=== PATIENT | female | born 1985 | race Caucasian/White ===

== ENCOUNTER 2020-04-12 17:16 | Emergency (ER) | payer OTHER ==
[~2020-04-12] VITALS: Ht 162.6 cm; Wt 61.9 kg
[2020-04-12] MEDS ORDERED: IV NORMAL SALINE 1000ML BAG 1,000 ML IV SCH (17:46)
[2020-04-12 17:54] LABS: BASO # 0.1 x10^3/uL (0.0-0.2); BASO % 1 % (0-3); EOS # 0.3 x10^3/uL (0.0-0.7); EOS % 2 % (0-3); HEMOGLOBIN 13.2 g/dL (12.0-15.5); LYMPH # 3.2 x10^3/uL (1.0-4.8); LYMPH % 22 % (24-48); MEAN CORPUSCULAR HEMOGLOBIN 32 pg (25-35); MEAN CORPUSCULAR HGB CONC 33 g/dL (31-37); MEAN CORPUSCULAR VOLUME 96 fL (79-100); MONO # 0.9 x10^3/uL (0.0-1.1); MONO % 6 % (0-9); NEUT % 69 % (31-73); PLATELET COUNT 286 x10^3/uL (140-400); RED BLOOD COUNT 4.18 x10^6/uL (3.50-5.40); RED CELL DISTRIBUTION WIDTH 13.1 % (11.5-14.5); WHITE BLOOD COUNT 14.6 x10^3/uL (4.0-11.0)
[2020-04-12 17:56] LABS: BILIRUBIN,URINE NEGATIVE (NEG); COLOR,URINE YELLOW; NITRITE,URINE NEGATIVE (NEG); PH,URINE 7.5 (<5.0-8.0); PROTEIN,URINE NEGATIVE (NEG-TRACE); UROBILINOGEN,URINE 0.2 mg/dL (0.2 mg/dL)
[2020-04-12 18:03] LABS: BARBITURATES NEG (NEG); BENZODIAZEPINES NEG (NEG); CANNABINOIDS NEG (NEG); CLARITY,URINE CLEAR; COCAINE NEG (NEG); METHADONE NEG (NEG); OPIATES NEG (NEG); PHENCYCLIDINE NEG (NEG)
[2020-04-12 18:03] LABS: CALCIUM 8.5 mg/dL (8.5-10.1); CREATININE 0.7 mg/dL (0.6-1.0); POTASSIUM 4.2 mmol/L (3.5-5.1); PROTHROMBIN TIME PATIENT 12.5 SEC (11.7-14.0)
[2020-04-12 18:04] LABS: AMPHETAMINE/METHAMPHETAMINE NEG (NEG); BACTERIA,URINE FEW /HPF (0-FEW); RBC,URINE 0 /HPF (0-2); WBC,URINE 0 /HPF (0-4)
[2020-04-12 18:09] LABS: ALBUMIN 3.5 g/dL (3.4-5.0); ALBUMIN/GLOBULIN RATIO 1.1 (1.0-1.7); TOTAL BILIRUBIN 0.1 mg/dL (0.2-1.0); TOTAL PROTEIN 6.7 g/dL (6.4-8.2)
--- NOTE | 2020-04-12 18:11 | PHYS DOC ---
General Adult EDM: Chief Complaint: ABDOMINAL PAIN HPI: HPI: Patient is a 34 year old female who presents with here from [facility] drug rehab facility with 1 day of lower mid abdominal cramping. She states she also had 8 p eriod in December. She states she just recently had a period April 03. She states she has not taken any medications for her pain. Patient has a history of miscarriage, ovarian cyst, drug abuse. Rates her pain a 7 out of 10. She states she did have some constipation but had a large bowel movement today that she is feeling better. States she does have some nausea but has not been vomiting. She denies fever, dysuria symptoms, abnormal vaginal discharge, chest pain, shortness of breath, headache, dizziness, syncope, back pain, numbness or tingling. Review of Systems: Review of Systems: Constitutional: Denies fever or chills. [] Eyes: Denies change in visual acuity. [] HENT: Denies nasal congestion or sore throat. [] Respiratory: Denies cough or shortness of breath. [] Cardiovascular: Denies chest pain or edema. [] GI: + abdominal pain, +nausea, denies vomiting, bloody stools or diarrhea. [] : Denies dysuria. + Abnormal periods. +Concern for STD. [] Musculoskeletal: Denies back pain or joint pain. [] Integument: Denies rash. [] Neurologic: Denies headache, focal weakness or sensory changes. [] Endocrine: Denies polyuria or polydipsia. [] Lymphatic: Denies swollen glands. [] Psychiatric: Denies depression or anxiety. [] Heart Score: Risk Factors: Risk Factors: DM, Current or recent (<one month) smoker, HTN, HLP, family history of CAD, obesity. Risk Scores: Score 0 - 3: 2.5% MACE over next 6 weeks - Discharge Home Score 4 - 6: 20.3% MACE over next 6 weeks - Admit for Clinical Observation Score 7 - 10: 72.7% MACE over next 6 weeks - Early Invasive Strategies Current Medications: Current Medications Medications (Trade) Dose Ordered Sig/Marisol Start Time Stop Time Status Last Admin Dose Admin Sodium Chloride 1,000 ml @ 1,000 mls/hr Q1H 04/12/20 17:46 04/12/20 18:45 UNV Physical Exam: PE: Constitutional: Well developed, well nourished, no acute distress, non-toxic appearance. [] HENT: Normocephalic, atraumatic, bilateral external ears normal, oropharynx moist, no oral exudates, nose normal. [] Eyes: PERRLA, EOMI, conjunctiva normal, no discharge. [] Neck: Normal range of motion, no tenderness, supple, no stridor. [] Cardiovascular:Heart rate regular rhythm, no murmur [] Lungs & Thorax: Bilateral breath sounds clear to auscultation [] Abdomen: Bowel sounds normal, soft, Low mid abdominal tenderness, no masses, no pulsatile masses. [] Skin: Warm, dry, no erythema, no rash. [] Back: No tenderness, no CVA tenderness. [] Extremities: No tenderness, no cyanosis, no clubbing, ROM intact, no edema. [] Neurologic: Alert and oriented X 3, normal motor function, normal sensory function, no focal deficits noted. [] Psychologic: Affect normal, judgement normal, mood normal. [] Current Patient Data: Labs: Laboratory Tests Test 04/12/20 17:35 04/12/20 17:44 04/12/20 17:53 Urine Opiates Screen Neg (NEG) Urine Methadone Screen Neg (NEG) Urine Barbiturates Neg (NEG) Urine Phencyclidine Screen Neg (NEG) Urine Amphetamine/Methamphetamine Neg (NEG) Urine Benzodiazepines Screen Neg (NEG) Urine Cocaine Screen Neg (NEG) Urine Cannabinoids Screen Neg (NEG) Urine Ethyl Alcohol Neg (NEG) White Blood Count 14.6 x10^3/uL (4.0-11.0) H Red Blood Count 4.18 x10^6/uL (3.50-5.40) Hemoglobin 13.2 g/dL (12.0-15.5) Hematocrit 40.0 % (36.0-47.0) Mean Corpuscular Volume 96 fL (79-100) Mean Corpuscular Hemoglobin 32 pg (25-35) Mean Corpuscular Hemoglobin Concent 33 g/dL (31-37) Red Cell Distribution Width 13.1 % (11.5-14.5) Platelet Count 286 x10^3/uL (140-400) Neutrophils (%) (Auto) 69 % (31-73) Lymphocytes (%) (Auto) 22 % (24-48) L Monocytes (%) (Auto) 6 % (0-9) Eosinophils (%) (Auto) 2 % (0-3) Basophils (%) (Auto) 1 % (0-3) Neutrophils # (Auto) 10.0 x10^3/uL (1.8-7.7) H Lymphocytes # (Auto) 3.2 x10^3/uL (1.0-4.8) Monocytes # (Auto) 0.9 x10^3/uL (0.0-1.1) Eosinophils # (Auto) 0.3 x10^3/uL (0.0-0.7) Basophils # (Auto) 0.1 x10^3/uL (0.0-0.2) Sodium Level 138 mmol/L (136-145) Potassium Level 4.2 mmol/L (3.5-5.1) Chloride Level 103 mmol/L (98-107) Carbon Dioxide Level 25 mmol/L (21-32) Anion Gap 10 (6-14) Blood Urea Nitrogen 13 mg/dL (7-20) Creatinine 0.7 mg/dL (0.6-1.0) Estimated GFR (Cockcroft-Gault) 97.0 BUN/Creatinine Ratio 19 (6-20) Glucose Level 97 mg/dL (70-99) Calcium Level 8.5 mg/dL (8.5-10.1) Total Bilirubin Pending Aspartate Amino Transferase (AST) Pending Alanine Aminotransferase (ALT) Pending Alkaline Phosphatase Pending Total Protein Pending Albumin Pending Albumin/Globulin Ratio Pending Lipase Pending POC Urine HCG, Qualitative Hcg negative (Negative) Laboratory Tests 04/12/20 17:44 Laboratory Tests 04/12/20 17:44 EKG: EKG: [] Radiology/Procedures: Radiology/Procedures: [] Impression: [facility] [address] [place] [address] IMAGING REPORT Signed PATIENT: RAJAN FISHER ACCOUNT: [id number] : 1985 LOCATION: ER AGE: 34 SEX: F EXAM STATUS: REG ER ORD. PHYSICIAN: GÓMEZ ANTUNEZ APRN REASON: PAIN, TENDERNESS, NAUSEA PROCEDURE: CT ABD PELV W/ IV CONTRST ONLY Exam: CT of abdomen and pelvis with contrast INDICATION: Pain, tenderness and nausea TECHNIQUE: Sequential axial images through the abdomen or pelvis obtained following the administration of 75 mL of Omni 300 IV contrast. Sagittal and coronal reformatted images were reconstructed from the axial data and reviewed. Comparisons: None FINDINGS: Heart size is normal. No pericardial effusion. Visualized lung bases are clear. No pleural effusion. Liver, spleen, pancreas, gallbladder and adrenals are unremarkable. No perinephric inflammation or hydronephrosis. No renal or ureteral calculi. Uterus is nonenlarged. No abnormal adnexal mass. Bladder is decompressed. Large and small bowel are unremarkable. Appendix is not identified. No free intra-abdominal air or fluid. No obstruction. Abdominal aorta has normal course and caliber. Abdominal vasculature is patent. No enlarged abdominal lymph nodes are identified. No suspicious osseous lesions or acute fractures. IMPRESSION: No acute process identified within the abdomen or pelvis. Exposure: One or more of the following in the visualized dose reduction techniques were utilized for this examination: 1. Automated exposure control 2. Adjustment of the MA and/or KV according to patient size 3. Use of iterative of reconstructive technique Electronically signed by: Carissa Driscoll MD (04/12/2020 7:07 PM) [facility] DICTATED and SIGNED BY: CARISSA DRISCOLL MD DATE: 04/12/[address] [facility] [address] [place] [address] IMAGING REPORT Signed PATIENT: RAJAN FISHER ACCOUNT: [id number] : 1985 LOCATION: ER AGE: 34 SEX: F EXAM STATUS: REG ER ORD. PHYSICIAN: GÓMEZ ANTUNEZ APRN REASON: pelvic pain, frequent periods PROCEDURE: PELVIS COMPLETE Exam: Ultrasound pelvis complete Indication: Pelvic pain Technique: Real-time grayscale and color Doppler images of the whole were obtained by the department pipe puller. Comparisons: None FINDINGS: Uterus measures 10.9 x 6.8 x 3.9 cm. Endometrium is 8 mm in thickness. Right ovary measures 3.4 x 2.4 x 2.1 cm. Left ovary measures 2.9 x 2.8 x 2.0 cm. There is a small adjacent cysts left ovary which measures approximately 1.5 cm. Vascular flow identified in the ovaries bilaterally. No free fluid. IMPRESSION: Left ovarian simple cyst measuring up to 1.5 cm. Otherwise, normal sonographic appearance of the uterus and ovaries. Electronically signed by: Carissa Driscoll MD (04/12/2020 9:19 PM) [facility] DICTATED and SIGNED BY: CARISSA DRISCOLL MD DATE: 04/12/202118 Course & Med Decision Making: Course & Med Decision Making Pertinent Labs and Imaging studies reviewed. (See chart for details) See HPI. Alert and oriented x4. Ambulatory to steady gait. Abdomen is soft but tender to low mid abdomen. Speaks in full complete sentences. No CVA tenderness. Skin pink warm and dry. Vital signs within normal limits. CT abdomen pelvis shows no acute findings. Blood work shows no acute findings. Urinalysis shows no acute findings. She remains afebrile. Awaiting ultrasound to rule out torsion or any other masses. Urinalysis is negative. Wet prep shows no acute findings. Patient refuses to be treated for chlamydia or gonorrhea and wants to wait for results. Patient educated that she will be called only if it is positive in 48 hours. Patient states that she is feeling better. Pelvic Exam: Bulb Weeder present Abdomen: Nontender External Genitalia: Normal Skin Speculum: Normal vaginal mucosa, white cervical discharge Bimanual: No adnexal masses or tenderness, No CMT [] Dragon Disclaimer: Dragon Disclaimer: This electronic medical record was generated, in whole or in part, using a voice recognition dictation system. Departure Departure Impression: Primary Impression: Pelvic pain Additional Impressions: Concern about STD in female without diagnosis Ovarian cyst Qualified Codes: N83.202 - Unspecified ovarian cyst, left side Disposition: 01 DC HOME SELF CARE/HOMELESS Condition: STABLE Referrals: NÉSTOR MONTANO MD (PCP) MARCELO RAMSEY Jr, MD Patient Instructions: Dysmenorrhea, [id number], Pelvic Pain, Female, [id number] Additional Instructions: Will be called in 48 hours only if your chlamydia or gonorrhea come back positive. Follow-up with your primary care provider. Drink plenty of fluids. Take ibuprofen for your pain. Also try using a heating pad. Scripts Ibuprofen (IBUPROFEN) 600 Mg Tablet 600 MG PO PRN Q6HRS PRN for INFLAMMATION, #25 TAB Prov: GÓMEZ ANTUNEZ APRN 04/12/20 GÓMEZ ANTUNEZ APRN Apr 12, 2020 18:11
[2020-04-12] MEDS ORDERED: KETOROLAC 30 MG/ML VIAL. IVP ONE (18:15)
[2020-04-12] MEDS ORDERED: ONDANSETRON PF 4 MG/2 ML VIAL. IVP ONE (18:15)
[2020-04-12] MEDS ORDERED: CONTRAST GIVEN. MC PRN (18:45)
[2020-04-12] MEDS ORDERED: IOHEXOL 300 MG/ML 100ML VIAL. IV ONE (18:45)
--- NOTE | 2020-04-12 19:10 | RAD ---
Exam: CT of abdomen and pelvis with contrast INDICATION: Pain, tenderness and nausea TECHNIQUE: Sequential axial images through the abdomen or pelvis obtained following the administration of 75 mL of Omni 300 IV contrast. Sagittal and coronal reformatted images were reconstructed from the axial data and reviewed. Comparisons: None FINDINGS: Heart size is normal. No pericardial effusion. Visualized lung bases are clear. No pleural effusion. Liver, spleen, pancreas, gallbladder and adrenals are unremarkable. No perinephric inflammation or hydronephrosis. No renal or ureteral calculi. Uterus is nonenlarged. No abnormal adnexal mass. Bladder is decompressed. Large and small bowel are unremarkable. Appendix is not identified. No free intra-abdominal air or fluid. No obstruction. Abdominal aorta has normal course and caliber. Abdominal vasculature is patent. No enlarged abdominal lymph nodes are identified. No suspicious osseous lesions or acute fractures. IMPRESSION: No acute process identified within the abdomen or pelvis. Exposure: One or more of the following in the visualized dose reduction techniques were utilized for this examination: 1. Automated exposure control 2. Adjustment of the MA and/or KV according to patient size 3. Use of iterative of reconstructive technique Electronically signed by: Carissa Encinas MD (04/12/2020 7:07 PM) [facility]
[2020-04-12] MEDS ORDERED: IBUP-1007 PO (20:04)
--- NOTE | 2020-04-12 21:22 | RAD ---
Exam: Ultrasound pelvis complete Indication: Pelvic pain Technique: Real-time grayscale and color Doppler images of the whole were obtained by the department aerophysics engineer. Comparisons: None FINDINGS: Uterus measures 10.9 x 6.8 x 3.9 cm. Endometrium is 8 mm in thickness. Right ovary measures 3.4 x 2.4 x 2.1 cm. Left ovary measures 2.9 x 2.8 x 2.0 cm. There is a small adjacent cysts left ovary which measures approximately 1.5 cm. Vascular flow identified in the ovaries bilaterally. No free fluid. IMPRESSION: Left ovarian simple cyst measuring up to 1.5 cm. Otherwise, normal sonographic appearance of the uterus and ovaries. Electronically signed by: Carissa Encinas MD (04/12/2020 9:19 PM) [facility]
[2020-04-12 21:48] VITALS: BP 110/67
[2020-04-14 20:09] LABS: GC PROBE Negative (Negative)
== END 2020-04-12 21:58 | disposition home or self-care (01) ==
LOC: ER 17:16
DX: N83.292 Other ovarian cyst, left side (principal); Z20.2 Contact with and (suspected) exposure to infections with a predominantly sexual mode of transmission
CPT/HCPCS: 36415; 74177; 76856; 80053; 80307; 81001; 81025; 83690; 85025; 85610; 87491; 87591; 96361; 96374; 96375; 99285; J1885; J2405; J7030; Q0111; Q9967

== ENCOUNTER 2020-04-30 23:12 | Emergency (ER) | payer OTHER ==
[~2020-04-30] VITALS: Ht 162.6 cm; Wt 63.6 kg
[~2020-04-30 23:12] MED LIST: IBUP-1007 PO
[2020-04-30] MEDS ORDERED: METOCLOPRAMIDE HCL 10 MG/2 ML VIAL. IVP ONE (23:30)
[2020-04-30] MEDS ORDERED: IV NORMAL SALINE 1000ML BAG 1,000 ML IV ONE (23:30)
[2020-04-30] MEDS ORDERED: diphenhydrAMINE 50 MG/ML VIAL IVP ONE (23:30)
--- NOTE | 2020-04-30 23:38 | PHYS DOC ---
Past Medical History Past Medical History: Depression, Migraines Additional Past Medical Histor: HX OF DRUG ABUSE Past Surgical History: No Surgical History Additional Past Surgical Histo: d&c Smoking Status: Current Every Day Smoker Alcohol Use: None Social History Narrative: 22 DAYS ON REHAB General Adult EDM: Chief Complaint: HEADACHE HPI: HPI: History obtained from patient. Patient is a 32-year-old female with past medical 3 notable for migraines and opiate abuse who presents with chief complaint of headache. She states that she does have a history of longstanding migraines for the past several years. States typically gets self injections of antimigraine medication monthly. She states she was scheduled to receive a self injected migraine medication 2 days ago but has not been able to self inject because her rehabilitation nurse has not approved this medication yet. She states this headache seems similar to previous headaches. States is located the front of her head and the back of her head. Denies vomiting but does note some nausea. States she has not used drugs in the past several weeks. Denies fevers. Denies neck pain or stiffness. Denies any acute vision or hearing changes. Denies photophobia or phonophobia. States she has follow-up with Dr. Enamorado a neurologist in [facility]. She states that she does not dissipate being able to administer her own medication tomorrow. Patient denies acute onset of headache reaching maximal intensity in under one hour. This is neither the worst headache that Patient has ever experienced, nor was the onset timed with exertional activity or trauma. Patient has not experienced any fever, unusual neck pain or stiffness, syncope, or near syncope. Patient denies numbness, tingling, or weakness of the extremities. Patient also denies personal history of intracranial hemorrhage (including SAH), aneurysm, or AV malformation. Review of Systems: Review of Systems: Constitutional: Denies fever or chills. [] Eyes: Denies change in visual acuity. [] HENT: Denies nasal congestion or sore throat. [] Respiratory: Denies cough or shortness of breath. [] Cardiovascular: Denies chest pain or edema. [] GI: Denies abdominal pain, nausea, vomiting, bloody stools or diarrhea. [] : Denies dysuria. [] Musculoskeletal: Denies back pain or joint pain. [] Integument: Denies rash. [] Neurologic: Positive for headache Endocrine: Denies polyuria or polydipsia. [] Lymphatic: Denies swollen glands. [] Psychiatric: Denies depression or anxiety. [] Heart Score: Risk Factors: Risk Factors: DM, Current or recent (<one month) smoker, HTN, HLP, family history of CAD, obesity. Risk Scores: Score 0 - 3: 2.5% MACE over next 6 weeks - Discharge Home Score 4 - 6: 20.3% MACE over next 6 weeks - Admit for Clinical Observation Score 7 - 10: 72.7% MACE over next 6 weeks - Early Invasive Strategies Current Medications: Current Medications Medications (Trade) Dose Ordered Sig/Marisol Start Time Stop Time Status Last Admin Dose Admin Diphenhydramine HCl (Benadryl) 50 mg 1X ONCE 04/30/20 23:30 04/30/20 23:31 DC Metoclopramide HCl (Reglan Vial) 10 mg 1X ONCE 04/30/20 23:30 04/30/20 23:31 DC Sodium Chloride 1,000 ml @ 1,000 mls/hr 1X ONCE 04/30/20 23:30 05/01/20 00:29 Allergies: Allergies: Allergies Coded Allergies Type Severity Reaction Last Updated Verified No Known Drug Allergies 04/12/20 No Physical Exam: PE: Constitutional: Well developed, well nourished, no acute distress, non-toxic appearance. [] HENT: Normocephalic, atraumatic, bilateral external ears normal, oropharynx moist, no oral exudates, nose normal. [] Eyes: PERRLA, EOMI, conjunctiva normal, no discharge. [] Neck: Normal range of motion, no tenderness, supple, no stridor. [] Cardiovascular:Heart rate regular rhythm, no murmur [] Lungs & Thorax: Bilateral breath sounds clear to auscultation [] Abdomen: soft, no tenderness, no masses, no pulsatile masses. [] Skin: Warm, dry, no erythema, no rash. [] Back: No tenderness, no CVA tenderness. [] Extremities: No tenderness, no cyanosis, no clubbing, ROM intact, no edema. [] Neurologic: Alert with intact cognitive function. No aphasia, dysarthria, or neglect. GCS 15. Pupils 3 mm briskly reactive b/l. No APD present. Cranial nerves 2-12 grossly intact; no facial asymmetry present, tongue midline, shoulder shrugging strength intact. Strength 5/5 and symmetric throughout. Light touch sensation intact throughout. Cerebellar testing appropriate without evidence of dysdiadochokinesia. DTR's 2+ in all 4 extremities. Negative pronator drift bilaterally. Gait normal Psychologic: Affect normal, judgement normal, mood normal. [] Current Patient Data: Vital Signs: Vital Signs Date Time Temp Pulse Resp B/P (MAP) Pulse Ox O2 Delivery O2 Flow Rate FiO2 04/30/20 23:16 98.1 92 16 120/60 (80) 99 Room Air 98.1 EKG: EKG: [] Radiology/Procedures: Radiology/Procedures: [] Course & Med Decision Making: Course & Med Decision Making Pertinent Labs and Imaging studies reviewed. (See chart for details) [] Patient is a well-appearing 34-year-old female presents with complaint of acute on chronic migraine headache. She states this headache feels similar to previous ones. Initial neurologic exam without deficit. No signs of nuchal rigidity. CT imaging will be deferred as patient states this headache is similar to previous and she has had normal head imaging in the past. Left wrist plain films as interpreted by myself reveal no obvious fracture. These were obtained because the patient did note some left wrist swelling after a fall. Migraine medications were administered and patient did achieve resolution of her headache. Overall I do feel she is appropriate for discharge back to her rehabilitation facility. Her repeat neurologic exam remained stable. She states that she does have the medication area facility that she can self administer for headaches once approved by her rehab nurse. Return precautions were discussed and understood. Struck to follow-up with her neurologist and primary care physician next week. Stable for discharge home. Dragon Disclaimer: Julianna Disclaimer: This electronic medical record was generated, in whole or in part, using a voice recognition dictation system. Departure Departure Impression: Primary Impression: Headache Qualified Codes: R51.9 - Headache, unspecified Disposition: 01 DC HOME SELF CARE/HOMELESS Condition: STABLE Referrals: NÉSTOR MONTANO MD (PCP) Patient Instructions: Migraine Headache ANDRY HERNANDEZ DO Apr 30, 2020 23:38
[2020-05-01] MEDS ORDERED: HALOPERIDOL LACTATE 5 MG/ML VIAL. IVP ONE (01:00)
[2020-05-01] MEDS ORDERED: KETOROLAC 15 MG/ML VIAL. IVP ONE (01:00)
[2020-05-01 01:27] VITALS: BP 99/57
--- NOTE | 2020-05-01 01:38 | RAD ---
Three-view left wrist HISTORY: Pain AP lateral oblique views The visualized osseous structures appear normal. IMPRESSION: No acute findings. Electronically signed by: Cong Powers III, MD (05/01/2020 1:35 AM) [facility]
== END 2020-05-01 01:30 | disposition home or self-care (01) ==
LOC: ER 23:12
DX: G43.909 Migraine, unspecified, not intractable, without status migrainosus (principal); F11.10 Opioid abuse, uncomplicated; F32.9 Major depressive disorder, single episode, unspecified; F17.200 Nicotine dependence, unspecified, uncomplicated; Z98.890 Other specified postprocedural states
CPT/HCPCS: 73110; 81025; 96361; 96374; 96375; 99285; J1200; J1630; J1885; J2765; J7030